=== PATIENT | female | born 1975 | race Two or more races ===

== ENCOUNTER 2019-07-18 07:09 | Emergency (ER) | payer MEDICAID ==
[~2019-07-18] VITALS: Ht 170.2 cm; Wt 104.3 kg
[2019-07-18] MEDS ORDERED: cefTRIAXone SOD 1,000 MG VL IM ONE (07:30)
[2019-07-18] MEDS ORDERED: methylPREDNISolone SOD SUCC 125 MG/2 ML VL IM ONE (07:30)
[2019-07-18] MEDS ORDERED: LIDOCAINE 1% HCL (LOCAL ANESTH.) INJ 20ML MDV IJ ONE (07:45)
== END 2019-07-18 07:55 | disposition home or self-care (01) ==
LOC: ER 07:09
DX: K12.2 Cellulitis and abscess of mouth (principal); T78.40XA Allergy, unspecified, initial encounter; X58.XXXA Exposure to other specified factors, initial encounter
CPT/HCPCS: 96372; 99284; J0696; J2001; J2930

== ENCOUNTER 2024-04-06 13:11 | Emergency (ER) | payer MEDICAID ==
[~2024-04-06] VITALS: Ht 170.2 cm; Wt 101.4 kg
--- NOTE | 2024-04-06 13:35 | ED.PDOC ---
SOB-HPI HPI Comments 48Y F presents to ED for chief complaint possible carbon monoxide inhalation. Pt reports cough, nausea, and shakiness. Pt denies headache, vomiting, diarrhea, chest pain, and SOB. Pt states she arrived to her home at 2000 yesterday and noticed that the stove flame was left on. Pt smelled a strong gas odor, opened her windows, and went to bed. Pt woke up this morning with the cough and was referred to ED by unknown constitution party. Pt denies sick contact. Pt states she lives with her daughter and has a pet cat, whom are not experiencing any symptoms. Pt denies alcohol, tobacco, and illicit drug use. No other symptoms or history reported. Chief Complaint: Inhalation Time Seen by MD: 13:19 Reviewed notes: Nurses Notes, Medications, Allergies Information Source: Patient Mode of Arrival: Ambulatory Severity: Mild Timing: Hours Duration: Since onset Context: Other (possible exposure to carbon monoxide) PE Risk Factors: None History of: None Modifying Factors: Nothing Associated Signs and Symptoms: Cough, Other Past Medical History PAST MEDICAL HISTORY: Denies Surgical History: Denies all surgeries OPTICAL MANUFACTURING TECHNICIAN History: Denies all OPTICAL MANUFACTURING TECHNICIAN Hx Family History Family History: Unknown Social History Smoker: Non-Smoker Alcohol: Denies ETOH Use Drugs: Denies Drug Use Lives In: Home Constitutional: denies: chills, diaphoresis, fatigue, fever, malaise, sweats, weakness, others EENTM: denies: blurred vision, double vision, ear bleeding, ear discharge, ear drainage, ear pain, ear ringing, eye pain, eye redness, hearing loss, mouth pain, mouth swelling, nasal discharge, nose bleeding, nose congestion, nose pain, photophobia, tearing, throat pain, throat swelling, voice changes, others Respiratory: reports: cough; denies: hemoptysis, orthopnea, SOB at rest, shortness of breath, SOB with excertion, stridor, wheezing, others Cardiovascular: denies: chest pain, dizzy spells, diaphoresis, Dyspnea on exertion, edema, irregular heart beat, left arm pain, lightheadedness, palpitations, PND, syncope, others Gastrointestinal: reports: nausea; denies: abdomen distended, abdominal pain, blood streaked bowels, constipated, diarrhea, dysphagia, difficulty swallowing, hematemesis, melena, poor appetite, poor fluid intake, rectal bleeding, rectal pain, vomiting, others Genitourinary: denies: abnormal vagina bleeding, burning, dyspareunia, dysuria, flank pain, frequency, hematuria, incontinence, pain, , vagina discharge, urgency, others Neurological: denies: dizziness, fainting, headache, left sided numbness, left sided weakness, numbness, paresthesia, pre-existing deficit, right sided numbness, right sided weakness, seizure, speech problems, tingling, tremors, weakness, others Musculoskeletal: denies: back pain, gout, joint pain, joint swelling, muscle pain, muscle stiffness, neck pain, others Integumetry: denies: bruises, change in color, change in hair/nails, dryness, laceration, lesions, lumps, rash, wounds, others Allergic/Immunocompromised: denies: Difficulty Healing, Frequent Infections, Hives, Itching, others Hematologic/Lymphatic: denies: anemia, blood clots, easy bleeding, easy bruising, swollen glands, others Endocrine: denies: excessive hunger, excessive sweating, excessive thirst, excessive urination, flushing, intolerance to cold, intolerance to heat, unexplained weight gain, unexplained weight loss, others Psychiatric: denies: anxiety, bipolar disorder, depression, hopeless, panic disorder, schizophrenia, sleepless, suicidal, others All Other Systems: Reviewed and Negative Physical Exam General Appearance: No Apparent Distress, Normal HEENT: Normal ENT Inspection, Pharynx Normal, TMs Normal Neck: Full Range of Motion, Non-Tender, Normal, Normal Inspection Respiratory: Chest Non-Tender, Lungs Clear, No Accessory Muscle Use, No Respiratory Distress, Normal Breath Sounds Cardiovascular: No Edema, No JVD, No Murmur, No Gallop, Normal Peripheral Pulses, Regular Rate/Rhythm Breast Exam: Deferred Gastrointestinal: No Organomegaly, Non Tender, No Pulsatile Mass, Normal Bowel Sounds, Soft Genitalia: Deferred Pelvic: Deferred Rectal: Deferred Extremities: No calf tenderness, Normal capillary refill, Normal inspection, Normal range of motion, Non-tender, No pedal edema Musculoskeletal : Apperance: Normal Neurologic: Alert, data entry technician II-XII nml as Tested, No Motor Deficits, Normal Affect, Normal Mood, No Sensory Deficits Cerebellar Function: Normal Reflexes: Normal Skin: Dry, Normal Color, Warm Lymphatic: No Adenopathy Was a procedure done? Was a procedure done?: No Differential Dx Differential Diagnosis: Anxiety, Bronchitis, URI, Other (CO exposure) X-Ray, Labs, Meds, VS Vital Signs Date Time Temp Pulse Resp B/P (MAP) Pulse Ox O2 Delivery O2 Flow Rate FiO2 04/06/24 13:24 97.8 78 19 139/94 (109) 98 04/06/24 13:24 19 98 Room Air* 0 21 Lab Test 04/06/24 13:39 Range/Units Blood Gas Specimen Type Arterial Blood Gas Sample Site Right radial Blood Gas Patient Temperature 37.0 Arterial Blood Date Drawn [id number] Arterial Blood pH 7.442 7.350-7.450 Arterial Blood Partial Pressure CO2 34.1 32.0-45.0 mmHg Arterial Blood Partial Pressure O2 71.5 L 83.0-108.0 mmHg Arterial Blood HCO3 22.7 21.0-28.0 mmol/L Arterial Blood Oxygen Saturation 94.7 94.0-98.0 % Arterial Blood Base Excess -0.7 -2.0-3.0 mmol/L Arterial Blood Oxyhemoglobin 93.7 L 94.0-98.0 % Arterial Blood Carboxyhemoglobin 0.7 0.5-1.5 % Arterial Blood Methemoglobin 0.4 0.0-1.5 % Marin Test Yes Blood Gas Total Hemoglobin 14.80 12.0-16.0 g/dL Blood Gas Modality Room air FiO2 % 21.0 Time of 1ST Reevaluation: 13:49 Reevaluation 1ST: Unchanged Reevaluation 2ND: Resolved Patient Education/Counseling: Diagnosis, Treatment, Prognosis, Need For Follow Up Family Education/Counseling: No Family Present Additional Information I reviewed the following notes from patient's past medical encounters: [facility] ER 07/18/2019 The following tests were ordered, and results were reviewed by me: OSCAR Additional Information was gathered from interviewing the following independent historians: None I reviewed and agreed with the following test results read by other providers: None I discussed treatment and results with medical personnel. no pets or other family members had symptoms. pt likely became worried and developed subjective symptoms. the abg does not support CO poisoning. she is feeling improved after finding this out and is stable for discharge Departure 1 Departure Time of Disposition: 15:10 Impression: Primary Impression: Feared condition not demonstrated Disposition: 01 HOME / SELF CARE / HOMELESS Condition: Good Discharged With: Self Critical Care Note Critical Care Time?: No Stability Stability form required: No Heart Score Heart Score: Heart Score Response (Comments) Value History N/A 0 EKG N/A 0 Age N/A 0 Risk Factors N/A 0 Troponin N/A 0 Total 0 I personally scribed for VALERIA KEARNEY MD ([email or web address]) on 04/06/24 at 13:35. Electronically submitted by Sheridan Dorado ([email or web address]). VALERIA KEARNEY MD Apr 06, 2024 13:35
[2024-04-06 13:43] LABS: Base Excess -0.7 mmol/L (-2.0-3.0)
[2024-04-06 15:15] VITALS: PULSE 72; RESP 16; O2SAT 98
[2024-04-06 15:29] VITALS: BP 109/64; PULSE 62; RESP 16; TEMP 98.8; O2SAT 99
== END 2024-04-06 15:37 | disposition home or self-care (01) ==
LOC: ER 13:11
DX: R05.9 Cough, unspecified (principal); R11.0 Nausea; R25.1 Tremor, unspecified
CPT/HCPCS: 36600; 82805